=== PATIENT | female | born 1955 | race Caucasian/White ===

== ENCOUNTER 2018-01-20 19:28 | Emergency (ER) | payer BC ==
[2018-01-20] MEDS ORDERED: 0.9 % SODIUM CHLORIDE 1000ML 2,000 ML IV SCH (20:00)
--- NOTE | 2018-01-20 20:01 | Emergency Department Record ---
History of Present Illness - General Chief Complaint: Cough Stated Complaint: FLU LIKE SYNTOMS FOR 1WK, 24 HOURS W/O URINATING Time Seen by Provider: 01/20/18 19:53 Source: Patient Mode of Arrival: Ambulatory Limitations: No limitations - History of Present Illness Initial Comments: 62 yo female presents to ED for evaluation of productive cough symptoms and intermittent fevers that have progressively worsened for the past 1 week. SO reports that the patient has continued to become more and more weak, reports no urine output over the past 24 hours despite administering PO fluids at home, and was concerned about possible sepsis. SO reports worsening weakness symptoms and passing out at home x 3 yesterday. Complaint: Fever Onset/Timin -: Week(s) Severity: Moderate Consistency: Constant Improves With: Nothing Worsens With: Other (Exertion) Associated Symptoms: Cough, Fever Treatments Prior to Arrival: Acetaminophen, Ibuprofen - Related Data Home Medications Medication Instructions Recorded Confirmed Last Taken Aspirin [Aspir-Low] 81 mg PO DAILY 01/20/18 01/20/18 Unknown Cyclobenzaprine HCl [Flexeril] 10 mg PO BID 01/20/18 01/20/18 Unknown Diclofenac Sodium [Voltaren] 1 applic TP QID 01/20/18 01/20/18 Unknown Ferrous Sulfate [Iron] 325 mg PO DAILY 01/20/18 01/20/18 Unknown Fexofenadine HCl [Kacey Allergy] 180 mg PO DAILY 01/20/18 01/20/18 Unknown Fluticasone Propionate [Flonase] 1 spray EACH NARES BID 01/20/18 01/20/18 Unknown Gabapentin [Neurontin] 1,200 mg PO TID 01/20/18 01/20/18 Unknown Levothyroxine Sodium [Synthroid] 75 mcg PO DAILY 01/20/18 01/20/18 Unknown Losartan Potassium [Cozaar] 100 mg PO DAILY 01/20/18 01/20/18 Unknown Meloxicam [Mobic] 15 mg PO DAILY 01/20/18 01/20/18 Unknown Metformin HCl 1,000 mg PO BID 01/20/18 01/20/18 Unknown Milnacipran HCl [Savella] 200 mg PO DAILY 01/20/18 01/20/18 Unknown Multivitamin [Daily Multiple 1 each PO DAILY 01/20/18 01/20/18 Unknown Vitamin] Naratriptan HCl [Amerge] 2.5 mg PO BID PRN 01/20/18 01/20/18 Unknown Pantoprazole Sodium [Protonix] 40 mg PO DAILY 01/20/18 01/20/18 Unknown Simvastatin [Zocor] 40 mg PO QPM 01/20/18 01/20/18 Unknown Trazodone HCl 300 mg PO QHS 01/20/18 01/20/18 Unknown Zolpidem Tartrate [Ambien] 5 mg PO QHS 01/20/18 01/20/18 Unknown Allergies Allergy/AdvReac Type Severity Reaction Status Date / Time Sulfa (Sulfonamide Allergy ANAPHYLAXIS Verified 01/20/18 19:39 Antibiotics) Travel Screening - Travel/Exposure Within Last 30 Days Have you traveled within the last 30 days?: No Review of Systems Constitutional: Reports: Chills, Fever, Malaise, Weakness. Denies: Night sweats Eyes: Denies: Eye discharge, Eye pain ENT: Reports: Congestion. Denies: Ear pain, Epistaxis Respiratory: Reports: Cough, Dyspnea. Denies: Hemoptysis Cardiovascular: Denies: Chest pain, Dyspnea on exertion Endocrine: Denies: Fatigue, Heat or cold intolerance Gastrointestinal: Denies: Abdominal pain, Nausea, Vomiting Genitourinary: Reports: Retention. Denies: Incontinence Musculoskeletal: Denies: Arthralgia, Back pain, Gout, Joint swelling Skin: Denies: Bruising, Change in color Neurological: Denies: Abnormal gait, Confusion, Headache, Seizure Psychiatric: Denies: Anxiety Hematological/Lymphatic: Denies: Anemia, Blood Clots Past Medical History - SOCIAL HISTORY Smoking Status: Former smoker Alcohol Use: None Drug Use: None - RESPIRATORY Hx Respiratory Disorders: Yes Hx Asthma: Yes - CARDIOVASCULAR Hx Cardio Disorders: Yes Hx Hypertension: Yes - NEURO Hx Neuro Disorders: Yes Hx Headaches: Yes (Migraines) - GI Hx GI Disorders: Yes Hx Reflux: Yes - Hx Genitourinary Disorders: No - ENDOCRINE Hx Endocrine Disorders: Yes Hx Diabetes: Yes Hx Thyroid Disease: Yes - MUSCULOSKELETAL Hx Musculoskeletal Disorders: Yes Hx Fibromyalgia: Yes - PSYCH Hx Psych Problems: No - HEMATOLOGY/ONCOLOGY Hx Hematology/Oncology Disorders: No Family Medical History Any Significant Family History?: Yes Hx Cancer: Grandparents Physical Exam - General General Appearance: Alert, Oriented x3, Cooperative, Moderate distress, Other ( Appears fatigued on examination) Limitations: No limitations - Head Head exam: Atraumatic, Normocephalic, Normal inspection Head exam detail: negative: Abrasion, Contusion, Jordan's sign, General tenderness, Hematoma, Laceration - Eye Eye exam: Normal appearance. negative: Conjunctival injection, Periorbital swelling, Periorbital tenderness, Scleral icterus - ENT Ear exam: negative: Auricular hematoma, Auricular trauma Nasal Exam: negative: Active bleeding, Discharge, Dried blood, Foreign body Mouth exam: negative: Drooling, Laceration, Muffled voice, Tongue elevation - Neck Neck exam: Normal inspection. negative: Meningismus, Tenderness - Respiratory Respiratory exam: Decreased breath sounds, Rhonchi. negative: Rales, Respiratory distress, Stridor - Cardiovascular Cardiovascular Exam: Normal rhythm, Normal heart sounds, Tachycardia - GI/Abdominal GI/Abdominal exam: Soft. negative: Rebound, Rigid, Tenderness - Rectal Rectal exam: Deferred - exam: Deferred - Extremities Extremities exam: negative: Pedal edema, Tenderness - Neurological Neurological exam: Alert, Oriented X3 - Psychiatric Psychiatric exam: Normal affect, Normal mood - Skin Skin exam: Normal color. negative: Abrasion Type of lesion: negative: abrasion Course Vital Signs 01/20/18 19:37 Temperature 98.7 F Pulse Rate [ 115 H Pulse Ox Probe] Respiratory 24 Rate Blood Pressure 141/68 [Left Arm] Pulse Ox 92 L - Reevaluation(s) Reevaluation #1: 01/20/18 20:02 Patient was seen and examined, 2L NS bolus ordered for probable early sepsis. Will obtain laboratory studies and lactic acid level, UA/CXR and monitor closely. Reevaluation #2: 01/20/18 20:12 WBC called-27.9. Patient is in radiology for x-ray Zosyn ordered to infuse upon return. Reevaluation #3: 01/20/18 20:21 Laboratory results returned: Na 124 Cl- 86 CO2 18 Cl- 20 BUN 63/Creatinine 5.2 IVFs infusing. Reevaluation #4: 01/20/18 20:30 CXR reviewed: Probable RUL/RLL infiltrates present Potassium resulted: Insulin/Glucose ordered, EKG ordered to assess. Reevaluation #5: 01/20/18 20:38 Case was discussed with Dr. Harman, will accept transfer to ICU. EKG: NSR 110 Normal axis, normal intervals No acute ST-T wave changes No widening of the QRS, no peaked T-waves. Repeat Potassium confirmed 6.4 and is non-hemolyzed. 01/20/18 21:46 Repeat accu-check 105. Pulse 111, BP 138/67, 94% RA. Levaquin ordered to infuse (Zosyn completed) 2nd liter NS has 500 mL remaining. Medical Decision Making - Lab Data Result diagrams: 01/20/18 19:55 01/20/18 19:55 Critical Care Time Critical Care Time: Yes Total Critical Care Time: 60 Critical Care Time: Diagnosis and treatment for sepsis, ARF, hyperkalemia, CAP, frequent reassessments, and initiation of transfer to [facility] ICU. Treatments included: IVF resuscitation, BS antibiotics, and treatment/ reconfirmation of hyperkalemia. Disposition Disposition: Transfer Clinical Impression: Hyperkalemia ARF (acute renal failure) Qualifiers: Acute renal failure type: unspecified Qualified Code(s): N17.9 - Acute kidney failure, unspecified Sepsis Qualifiers: Sepsis type: sepsis due to unspecified organism Qualified Code(s): A41.9 - Sepsis, unspecified organism CAP (community acquired pneumonia) Qualifiers: Laterality: right Lung location: upper lobe of lung Qualified Code(s): J18.1 - Lobar pneumonia, unspecified organism Disposition: Acute Care Hospital Transfer Transfer To: [facility] Reason For Transfer: ICU admission Accepting Physician: Kimani Time Discussed w/Accepting Physician: 20:34 Condition: (2) Stable Forms: Patient Portal Access Time of Disposition: 20:34 Quality - Quality Measures Quality Measures: N/A - Blood Pressure Screening Does Patient Have Any of the Following: No Blood Pressure Classification: Pre-Hypertensive BP Reading Systolic Measurement: 125 Diastolic Measurement: 62 Screening for High Blood Pressure: < Pre-Hypertensive BP, F/U Documented > [ [id number]] Pre-Hypertensive Follow-up Interventions: Referral to alternative/primary care provider.
[2018-01-20 20:07] LABS: BASO % 0.2 % (0-6); EOS % 0.1 % (0-6); HEMATOCRIT 37.1 % (35.0-47.0); HEMOGLOBIN 12.3 gm/dl (11.6-16.0); LYMPH % 5.8 % (16-45); MEAN CELL VOLUME 88.5 fl (81-97); MEAN CORPUSCULAR HEMOGLOBIN 29.4 pg (27-33); MEAN CORPUSCULAR HGB CONC 33.2 g/dl (32-36); MEAN PLATELET VOLUME 9.8 fl (7.4-10.4); MONO % 7.6 % (0-9); PLATELET COUNT 423 K/uL (130-400); RED BLOOD COUNT 4.19 M/uL (3.80-5.40); RED CELL DISTRIBUTION WIDTH 13.3 % (11.5-14.5)
[2018-01-20 20:11] LABS: WHITE BLOOD COUNT W/O DIFF 27.9 K/uL (4.2-12.2)
[2018-01-20] MEDS ORDERED: PIPERACILLIN SODIUM/TAZOBACTAM 4.5 GM in 0.9 % SODIUM CHLORIDE 100ML 100 ML IVPB ONE (20:12)
[2018-01-20 20:15] LABS: BILIRUBIN,TOTAL 0.4 mg/dL (0.2-1.0); CREATININE 5.2 mg/dL (0.5-0.9); TOTAL PROTEIN 7.2 g/dL (6.6-8.7)
[2018-01-20 20:20] LABS: ALB/GLOB RATIO 0.8 (1.1-1.8); ALBUMIN 3.3 g/dL (4.0-5.0)
[2018-01-20] MEDS ORDERED: HUMULIN R 100 UNIT/ML VIAL IV ONE (20:29)
[2018-01-20] MEDS ORDERED: DEXTROSE 50 % IVP 50 ML DISP.SYRIN IVP ONE (20:29)
[2018-01-20 20:30] LABS: PLATELET ESTIMATE INCREASED (NORMAL)
[2018-01-20 20:31] LABS: TOXIC GRANULATION 1+
[2018-01-20] MEDS ORDERED: LEVOFLOXACIN/D5W 750 MG/150 ML BAG IVPB ONE (21:47)
--- NOTE | 2018-01-22 14:45 | RADIOLOGY REPORT ---
EXAM: CHEST, TWO VIEWS HISTORY: PRODUCTIVE COUGH WITH GREEN SPUTUM, FEVER, WEAKNESS, AND DIARRHEA FOR PAST WEEK. TECHNIQUE: PA and lateral upright views of the chest were obtained. Comparison: None. FINDINGS: There are patchy infiltrates within the right upper and lower lung boyd. Patchy infiltrates are also noted within the left mid and lower lung boyd. The appearance is consistent with bilateral pneumonia. There is no pneumothorax or visible effusion. The bones appear intact. IMPRESSION: BILATERAL PULMONARY INFILTRATES, RIGHT GREATER THAN LEFT SUGGESTING BILATERAL PNEUMONIA. JOB NUMBER: [id number] [facility]
== END 2018-01-20 22:21 | disposition short-term general hospital (02) ==
LOC: ER 19:28
DX: A41.9 Sepsis, unspecified organism (principal); J18.1 Lobar pneumonia, unspecified organism; N17.9 Acute kidney failure, unspecified; E87.5 Hyperkalemia; R53.1 Weakness; E11.9 Type 2 diabetes mellitus without complications; Z79.84 Long term (current) use of oral hypoglycemic drugs; I10 Essential (primary) hypertension; Z87.891 Personal history of nicotine dependence
CPT/HCPCS: 99291 ×2; 96365; 96375; 83605; 80053; 36416; 82948; 85027; 71046; 93005; 93010; J1956; J2543; J7030